=== PATIENT | male | born 1980 | race American Indian/Alaskan Native ===

== ENCOUNTER 2020-04-14 06:43 | Emergency (ER) | payer BC ==
[2020-04-14 08:05] LABS: Bilirubin,Urine NEG (Negative); Blood,Urine SM (Negative); Color,Urine Yellow (Yellow); Mucus,Urine FEW /HPF; Protein,Urine <15 mg/dL mg/dL (Negative); Urobilinogen,Urine < 2.0 mg/dL (<2.0)
[2020-04-14 08:07] LABS: WBC,Urine > 182.0 /HPF (0.0-6.0)
[2020-04-14] MEDS ORDERED: LIDOCAINE-MPF (1%) 10 MG/1 ML VIAL 5 ML INFILTRATI ONE (08:52)
[2020-04-14] MEDS ORDERED: AZITHROMYCIN 250 MG TAB PO ONE (08:52)
--- NOTE | 2020-04-14 08:52 | Emergency Department Report ---
ED Male HPI - General Chief complaint: Urogenital-Male Stated complaint: BURNING DURING URINATION Time Seen by Provider: 04/14/20 08:49 Source: patient Mode of arrival: Ambulatory Limitations: No Limitations - History of Present Illness Initial comments: 40-year-old male complaining of burning with urination x2 days. He admits to having unprotected sex. Patient's blood pressure is 193/116 he denies any symptoms I asked patient about his blood pressure he says that is actually an improvement he does not take any medication and does not and will not take any medication patient states he is doing alternate treatments for his blood pressure such as exercise and diet Complaint: dysuria - Related Data Previous Rx's Medication Instructions Recorded Last Taken Type Ciprofloxacin HCl [Ciprofloxacin 500 mg PO Q12HR 7 Days #14 tab 04/14/20 Unknown Rx TAB] Allergies Allergy/AdvReac Type Severity Reaction Status Date / Time No Known Allergies Allergy Unverified 04/14/20 07:10 ED Review of Systems ROS: Stated complaint: BURNING DURING URINATION Other details as noted in HPI ED Past Medical Hx - Past Medical History Previous Medical History?: Yes Hx Hypertension: Yes - Surgical History Past Surgical History?: No - Social History Smoking Status: Current Every Day Smoker Substance Use Type: Alcohol - Medications Home Medications: Home Medications Medication Instructions Recorded Confirmed Last Taken Type Ciprofloxacin HCl [Ciprofloxacin 500 mg PO Q12HR 7 Days #14 tab 04/14/20 Unknown Rx TAB] ED Physical Exam - General Limitations: No Limitations ED Course Vital Signs 04/14/20 04/14/20 07:09 10:00 Temperature 98.0 F Pulse Rate 83 81 Respiratory 18 18 Rate Blood Pressure 193/116 Blood Pressure 217/149 [Right] O2 Sat by Pulse 97 98 Oximetry - Reevaluation(s) Reevaluation #1: 04/14/20 10:33 Patient in no distress continued to denies any symptoms I discussed with patient the need for blood pressure treatment and management patient once again states that he will follow up with his own doctor into his alternate treatments and does not want anything for his blood pressure he does deny headache chest pain and shortness of breath ED Medical Decision Making - Medical Decision Making 40-year-old male with a past medical history of hypertension presented to the ER complaining of dysuria x2 days he admits to having unprotected sex when he attended a libertarian I discussed with the patient the need for blood pressure treatment and management patient refuses any blood pressure treatment at he states that he is doing his treatment which includes diet and exercise patient also states if needed he will follow-up with his own doctor. He states that he is feeling fine . Urinalysis with WBC of 183 patient given Rocephin 250 IM and azithromycin 1 g to cover urethritis and he will be sent home with Cipro 500 twice daily x7 days Critical Care Time: No Critical care attestation.: If time is entered above; I have spent that time in minutes in the direct care of this critically ill patient, excluding procedure time. ED Disposition Clinical Impression: Possible exposure to STD UTI (urinary tract infection) Qualifiers: Urinary tract infection type: urethritis Qualified Code(s): N34.2 - Other urethritis Hypertension Qualifiers: Hypertension type: unspecified Qualified Code(s): I10 - Essential (primary) hypertension Disposition: TO HOME OR SELFCARE Is pt being admited?: No Does the pt Need Aspirin: No Condition: Stable Instructions: Chlamydia, Male, Urinary Tract Infection, Adult, [id number], Hypertension, Adult, [id number], Safe Sex, Managing Your Hypertension, Preventing Sexually Transmitted Infections, Adult, Gonorrhea, Hypertension (ED) Additional Instructions: Today you were treated with Rocephin and azithromycin which will cover you for gonorrhea and chlamydia. You appear to have a urinary tract infection. You will be given an oral antibiotic to take at home for urinary tract infection please follow-up with your primary care doctor in 3 to 5 days. Wear condoms all the time every time for safe sex. Return to the emergency room for worsening symptoms abdominal pain inability to pee fever vomiting. Your blood pressure is extremely high. 193/116 I recommend that you seek treatment. I know that you are doing alternative treatment for your blood pressure but at this point if it remains in this range you can develop possibly stroke heart attack kidney damage or even as a result for ongoing elevated blood pressure. Consider seeking medical treatment for your blood pressure Prescriptions: Ciprofloxacin HCl [Ciprofloxacin TAB] 500 mg PO Q12HR 7 Days #14 tab [facility] [Outside] - 3-5 Days PRIMARY CARE, [Primary Care Provider] - 3-5 Days
[2020-04-14 10:05] VITALS: BP 217/149
== END 2020-04-14 10:04 | disposition home or self-care (01) ==
LOC: ED 06:43
DX: N39.0 Urinary tract infection, site not specified (principal); I10 Essential (primary) hypertension; Z20.2 Contact with and (suspected) exposure to infections with a predominantly sexual mode of transmission
CPT/HCPCS: 81001; 96372; 99283; J0696

== ENCOUNTER 2021-01-01 01:01 | Emergency (ER) | payer BC ==
--- NOTE | 2021-01-01 01:08 | Emergency Department Report ---
ED CPR HPI - General Chief Complaint: Cardiac Arrest/CPR Stated Complaint: CARDIAC ARREST Time Seen by Provider: 01/01/21 01:04 Source: EMS, RN notes reviewed, old records reviewed Mode of arrival: Stretcher Limitations: Altered Mental Status, Physical Limitation - History of Present Illness Initial Comments: The patient was evaluated in the emergency department for symptoms described in the history of present illness. He/she was evaluated in the context of the global COVID-19 pandemic, which necessitated consideration that the patient might be at risk for infection with the virus that causes COVID-19. Institutional protocols and algorithms that pertain to the evaluation of patients at risk for COVID-19 are in a state of rapid change based on information released by regulatory bodies including the CDC and federal and state organizations. These policies and algorithms were followed during the patient's care in the emergency department. Please note that these policies, procedures and recommendations changed on a rapid basis. The patient is a 40-year-old gentleman. This patient is brought to the hospital by emergency medical services as an [id number] cardiac arrest. The patient arrives intubated, with a GCS of 3T, receiving active CPR. History obtained from EMS. EMS states this patient has been pulseless for about 35 minutes. His initial presenting rhythm is asystole. EMS states the patient reportedly complained of chest pain, and collapsed in front of friends or family or bystander. EMS reports that bystander CPR was initiated. EMS reports that upon their arrival, the patient is intubated, has a cervical collar placed, and has thus far received 4 rounds of epinephrine, in addition to sodium bicarbonate. During his entire ER resuscitation and prehospital resuscitation, the patient is in asystole, and does not have a shockable rhythm. Upon arrival to this emergency room, the pupils are fixed and dilated. Patient continues to receive high-quality CPR. He received standard ACLS medication, please reference nursing code sheet. Unfortunately, patient remains pulseless and in asystole, and bedside point-of- care ultrasound demonstrates cardiac standstill and no coordinated ventricular activity. Therefore, resuscitative efforts are terminated secondary to medical futility. At the moment, patient not accompanied by friends or family. MD Complaint: stopped breathing -: minute(s) (35) Bystander CPR Performed: Yes Initial Findings in the Field: no pulse, other rhythm (The patient is asystole) Treatments Prior to Arrival: intubation, chest compressions, epinephrine mgs #, sodium bicarbonate - Related Data Previous Rx's Medication Instructions Recorded Last Taken Type Ciprofloxacin HCl [Ciprofloxacin 500 mg PO Q12HR 7 Days #14 tab 04/14/20 Unknown Rx TAB] Allergies Allergy/AdvReac Type Severity Reaction Status Date / Time No Known Allergies Allergy Unverified 04/14/20 07:10 ED Review of Systems ROS: Stated complaint: CARDIAC ARREST Other details as noted in HPI Comment: Unobtainable due to pts medical conditions ED Past Medical Hx - Past Medical History Hx Hypertension: Yes - Social History Smoking Status: Current Every Day Smoker Substance Use Type: Alcohol - Medications Home Medications: Home Medications Medication Instructions Recorded Confirmed Last Taken Type Ciprofloxacin HCl [Ciprofloxacin 500 mg PO Q12HR 7 Days #14 tab 04/14/20 Unknown Rx TAB] ED Physical Exam - General Limitations: Altered Mental Status, Physical Limitation General appearance: obtunded, other (Intubated, GCS of 3T) - Head Head exam: Present: atraumatic, normocephalic - Eye Eye exam: Present: normal appearance, other (Pupils dilated and do not react to light) - ENT ENT exam: Present: normal exam, mucous membranes moist, normal external ear exam, other (Endotracheal tube noted in the oropharynx) - Neck Neck exam: Present: normal inspection - Respiratory Respiratory exam: Present: other (No breath sounds are less [id number] ventilation is) - Cardiovascular Cardiovascular Exam: Absent: regular rate (The patient is pulseless) - GI/Abdominal GI/Abdominal exam: Present: soft - Rectal Rectal exam: Present: deferred - exam: Present: normal inspection External exam: Present: normal external exam - Extremities Exam Extremities exam: Present: normal inspection - Back Exam Back exam: Present: normal inspection - Neurological Exam Neurological exam: Present: altered, other (GCS of 3T) - Psychiatric Psychiatric exam: Present: other (Nonverbal) - Skin Skin exam: Present: warm, dry, intact, normal color. Absent: rash ED Medical Decision Making - Medical Decision Making Differential diagnosis, including but not limited to: Acute coronary syndrome, pulmonary embolism, aortic catastrophe Critical care attestation.: If time is entered above; I have spent that time in minutes in the direct care of this critically ill patient, excluding procedure time. ED Disposition Clinical Impression: Cardiac arrest Disposition: 20 Is pt being admited?: No Does the pt Need Aspirin: No Condition: Undetermined
[2021-01-01] MEDS ORDERED: EPINEPHrine 1 MG/10 ML SYRINGE ONE (22:09)
[2021-01-01] MEDS ORDERED: SODIUM BICARB 8.4% 50 MEQ/50 ML SYRINGE IV ONE (22:09)
== END 2021-01-01 05:15 ==
LOC: ED 01:01
DX: I46.9 Cardiac arrest, cause unspecified (principal)
CPT/HCPCS: 92950; 99285; J0171